=== PATIENT | male | born 1960 | race Two or more races ===

== ENCOUNTER 2018-11-04 14:18 | Emergency (ER) | payer BC, OTHER ==
[~2018-11-04] VITALS: Ht 175.3 cm; Wt 109.8 kg
[2018-11-04 14:31] VITALS: BP 126/86
[2018-11-04] MEDS: KETOROLAC TROMETH 60MG/2ML VIAL IM ONE (14:59)
== END 2018-11-04 15:38 | disposition home or self-care (01) ==
LOC: ER 14:18
DX: S16.1XXA Strain of muscle, fascia and tendon at neck level, initial encounter (principal); S39.011A Strain of muscle, fascia and tendon of abdomen, initial encounter; S00.83XA Contusion of other part of head, initial encounter; V43.52XA Car driver injured in collision with other type car in traffic accident, initial encounter; Y93.89 Activity, other specified; Y99.8 Other external cause status; Y92.410 Unspecified street and highway as the place of occurrence of the external cause
CPT/HCPCS: 70450; 74176; 96372; 99284; J1885